=== PATIENT | male | born 1960 | race Caucasian/White ===

== ENCOUNTER 2018-06-03 21:46 | Outpatient (REF) | payer MEDICAID, SELFPAY ==
[2018-06-03 22:42] LABS: Anion Gap 7.6 mmol/L (3-11); BUN 17 mg/dL (7-18); CO2 26.4 mmol/L (21.0-32.0); CREATININE 0.99 mg/dL (0.70-1.30); Calcium 9.3 mg/dL (8.5-10.1); Chloride 100 mmol/L (98-107); Glucose 273 mg/dL (70-100); Potassium 4.7 mmol/L (3.5-5.1); Sodium 134 mmol/L (136-145)
== END 2018-06-03 22:06 ==
LOC: NCHCN 21:46
PROVIDERS: PCP Nurse Practitioner Family; Visit Provider Nurse Practitioner Family
DX: E11.9 Type 2 diabetes mellitus without complications (principal); I10 Essential (primary) hypertension
CPT/HCPCS: 80048

== ENCOUNTER 2019-05-13 11:49 | Outpatient (REF) | payer MEDICAID, SELFPAY ==
[2019-05-13 21:06] LABS: BUN 19 mg/dL (7-18); CREATININE 0.71 mg/dL (0.70-1.30); Calcium 9.2 mg/dL (8.5-10.1); Chloride 101 mmol/L (98-107); Glucose 138 mg/dL (74-106); Potassium 4.7 mmol/L (3.5-5.1); Sodium 136 mmol/L (136-145)
[2019-05-13 21:26] LABS: COMMENT (LAB VIEW ONLY) 44.78 mg/dL; Microalb ug/mg Crea 32.6 ug/mg Cr
== END 2019-05-13 12:09 ==
LOC: NCHCN 11:49
PROVIDERS: PCP Nurse Practitioner Family; Visit Provider Nurse Practitioner Family
DX: E11.9 Type 2 diabetes mellitus without complications (principal); I10 Essential (primary) hypertension; F17.210 Nicotine dependence, cigarettes, uncomplicated; J44.9 Chronic obstructive pulmonary disease, unspecified
CPT/HCPCS: 80048; 82043; 82570

== ENCOUNTER 2020-02-14 23:14 | Outpatient (REF) | payer MEDICAID, SELFPAY ==
[2020-02-14 22:11] LABS: COMMENT (LAB VIEW ONLY) 30.16 mg/dL; Microalb ug/mg Crea 33.8 ug/mg Cr
== END 2020-02-14 23:34 ==
LOC: NCHCN 23:14
PROVIDERS: PCP Nurse Practitioner Family; Visit Provider Nurse Practitioner Family
DX: E11.9 Type 2 diabetes mellitus without complications (principal); I10 Essential (primary) hypertension; F17.210 Nicotine dependence, cigarettes, uncomplicated; F32.9 Major depressive disorder, single episode, unspecified; J44.9 Chronic obstructive pulmonary disease, unspecified
CPT/HCPCS: 82043; 82570

== ENCOUNTER 2021-05-07 14:30 | Outpatient (REF) | payer MEDICAID, SELFPAY ==
[2021-05-07 15:26] LABS: COMMENT (LAB VIEW ONLY) 25.84 mg/dL; Microalb ug/mg Crea 32.9 ug/mg Cr
[2021-05-07 16:08] LABS: ALT 35 U/L (16-63); AST 17 U/L (15-37); Albumin 4.1 g/dL (3.4-5.0); Alkaline Phosphatase 105 U/L (46-116); Anion Gap 12.7 mmol/L (3-11); BUN 19 mg/dL (7-18); Bilirubin, Total 0.3 mg/dL (0.2-1.0); CO2 23.3 mmol/L (21.0-32.0); Calcium 9.6 mg/dL (8.5-10.1); Chloride 99 mmol/L (98-107); Glucose 118 mg/dL (74-106); Magnesium 2.1 mg/dL (1.8-2.4); Potassium 4.6 mmol/L (3.5-5.1); Sodium 135 mmol/L (136-145); Total Protein 7.2 g/dL (6.4-8.2); Vitamin B12 641 pg/mL (193-986)
[2021-05-07 16:10] LABS: Hemoglobin A1C 8.1 % (<5.7)
== END 2021-05-07 14:31 | disposition home or self-care (01) ==
LOC: NCHCN 14:30
PROVIDERS: PCP Nurse Practitioner Family; Visit Provider Nurse Practitioner Family
DX: E11.9 Type 2 diabetes mellitus without complications (principal); I10 Essential (primary) hypertension; E78.5 Hyperlipidemia, unspecified; R80.9 Proteinuria, unspecified; Z51.81 Encounter for therapeutic drug level monitoring
CPT/HCPCS: 80053; 82043; 82570; 82607; 83036; 83735

== ENCOUNTER 2022-05-13 12:59 | Outpatient (REF) | payer MEDICAID, SELFPAY ==
--- OUTSIDE RECORDS SUMMARY | 2022-05-13 13:01 | XMS_ITS | CCD ---
:1960 Author Care Team Providers Name Role Phone EVY CARRASCO Attending Physician Unavailable Vital Signs Unknown or Not Available. Allergies Allergy Code Allergy Type Reaction Status No Known Drug Allergies 0 No known drug allergies Active Procedures Unknown or Not Available. History of Immunizations Unknown or Not Available. Problems Unknown or Not Available. Results Unknown or Not Available. Active Medications Unknown or Not Available. Medications Administered During Visit Unknown or Not Available. Encounters Encounter Diagnosis Diagnosis Code Start Date Encounter for screening for malignant neoplasm of Z122 01/14/2022 respiratory organs Social History Smoking Status Code Start Date End Date Current every day smoker [id number] Patient Decision Aids Unknown or Not Available. Discharge Instructions You were admitted to [facility] on 01/14/2022 14:19 with a principal diagnosis of Encounter for screening for malignant neoplasm of respiratory organs You were discharged from [facility] on 01/14/2022 14:19 Should you have any questions prior to d ischarge, please contact a member of your healthcare team. If you have left the spital and have any questions, please contact your primary care physician. Chief Complaint and Reason For Visit Chief Complaint Date of Onset SMOKER LDCT Function Status Unknown or Not Available. Plan of Care Unknown or Not Available. Referral/Transition of Care Unknown or Not Available.
[2022-05-13 21:41] LABS: Anion Gap 9.8 mmol/L (3-11); BUN 23 mg/dL (7-18); CO2 22.2 mmol/L (21.0-32.0); CREATININE 0.9 mg/dL (0.70-1.30); Calcium 9.3 mg/dL (8.5-10.1); Chloride 102 mmol/L (98-107); Estimated GFR 96.57 (mL/min/1.73m2); Glucose 105 mg/dL (74-106); Potassium 4.3 mmol/L (3.5-5.1); Sodium 134 mmol/L (136-145)
[2022-05-13 21:51] LABS: COMMENT (LAB VIEW ONLY) 33.54 mg/dL; Microalb ug/mg Crea 14.9 ug/mg Cr
[2022-05-15 09:51] LABS: Hepatitis C Ab w Rflx HCV PCR Negative (Negative)
[2022-05-15 10:07] LABS: HIV-1/2 Ag & Ab Screen Negative (Negative)
== END 2022-05-13 13:00 | disposition home or self-care (01) ==
LOC: NCHCN 12:59
PROVIDERS: PCP Nurse Practitioner Family; Visit Provider Nurse Practitioner Family
DX: E11.9 Type 2 diabetes mellitus without complications (principal); I10 Essential (primary) hypertension; J44.9 Chronic obstructive pulmonary disease, unspecified; F17.210 Nicotine dependence, cigarettes, uncomplicated; Z11.4 Encounter for screening for human immunodeficiency virus [HIV]; Z11.59 Encounter for screening for other viral diseases; Z12.11 Encounter for screening for malignant neoplasm of colon
CPT/HCPCS: 80048; 86803; 87389; 82043; 82570

== ENCOUNTER 2023-04-09 20:54 | Outpatient (REF) | payer MEDICAID, SELFPAY ==
[2023-04-09 16:38] LABS: HCT 45.8 % (40.0-50.0); HGB 14.9 g/dL (13.5-17.5); MCH 30.6 pg (27.0-33.0); MCHC 32.5 % (32.0-36.0); MCV 94 fL (80-95); MPV 9.4 fL (8.0-11.0); Platelet Count 292 10^3/uL (130-400); RBC 4.87 10^6/uL (4.36-5.78); RDW 12.1 % (11.8-14.1); RDW-SD 41.9 fL; WBC 6.27 10^3/uL (4.4-10.8)
[2023-04-09 17:07] LABS: Anion Gap 9.3 mmol/L (3-11); BUN 29 mg/dL (7-18); CO2 24.7 mmol/L (21.0-32.0); CREATININE 0.9 mg/dL (0.70-1.30); Calcium 9.3 mg/dL (8.5-10.1); Calculated LDL 67 mg/dL (<100); Chloride 103 mmol/L (98-107); Cholesterol 140 mg/dL (<200); Estimated GFR 95.97 (mL/min/1.73m2); Glucose 136 mg/dL (74-106); HDL Cholesterol 42 mg/dL (40-60); Potassium 4.4 mmol/L (3.5-5.1); Sodium 137 mmol/L (136-145); Triglyceride 157 mg/dL (<150)
[2023-04-09 17:15] LABS: Hemoglobin A1C 8.1 % (<5.7)
--- OUTSIDE RECORDS SUMMARY | 2023-04-09 20:56 | XMS_ITS | CCD ---
Author Name Unknown Address [address] [place] [address] [id number] Organization Unknown Address [address] [place] [address] [phone] Care Team Providers Care Movie Editor Name Role Phone EVY CARRASCO Attending Physician [phone] Vital Signs Unknown or Not Available. Allergies [...] screening for malignant neoplasm of respiratory organs Z122 01/14/2022 Social History Smoking Status Code Start Date End Date Current every day smoker [id number] Patient Decision Aids Unknown or Not Available. Discharge Instructions You were admitted to [facility] on 01/14/2022 14:19 with a principal diagnosis of Encounter for screening for malignant neoplasm of respiratory organs You were discharged from [facility] on 01/14/2022 14:19 Should you have any questions prior to discharge, please contact a member of your healthcare team. If you have left the hospital and have any questions, please contact your primary care physician. Chief Complaint and Reason For Visit Chief Complaint Date of Onset SMOKER LDCT Function Status Unknown or Not Available. Plan of Care Unknown or Not Available. Referral/Transition of Care Unknown or Not Available.
== END 2023-04-09 20:55 | disposition home or self-care (01) ==
LOC: NCHCN 20:54
PROVIDERS: PCP Nurse Practitioner Family; Visit Provider Nurse Practitioner Family
DX: I10 Essential (primary) hypertension (principal); E11.9 Type 2 diabetes mellitus without complications; E78.5 Hyperlipidemia, unspecified
CPT/HCPCS: 80048; 80061; 85027; 83036

== ENCOUNTER 2023-07-16 13:26 | Outpatient (REF) | payer MEDICAID, SELFPAY ==
[2023-07-16 21:22] LABS: HCT 47.8 % (40.0-50.0); HGB 15.8 g/dL (13.5-17.5); MCHC 33.1 % (32.0-36.0); MCV 94 fL (80-95); MPV 9.5 fL (8.0-11.0); Platelet Count 316 10^3/uL (130-400); RBC 5.09 10^6/uL (4.36-5.78); RDW 11.9 % (11.8-14.1); RDW-SD 41.8 fL; WBC 7.27 10^3/uL (4.4-10.8)
[2023-07-16 21:54] LABS: COMMENT (LAB VIEW ONLY) 57.04 mg/dL; Hemoglobin A1C 7.2 % (<5.7); Microalb ug/mg Crea 23.3 ug/mg Cr
[2023-07-16 21:56] LABS: ALT 19 U/L (16-63); AST 16 U/L (15-37); Albumin 3.6 g/dL (3.4-5.0); Alkaline Phosphatase 92 U/L (46-116); Anion Gap 11.5 mmol/L (3-11); BUN 24 mg/dL (7-18); Bilirubin, Total 0.2 mg/dL (0.2-1.0); CO2 21.5 mmol/L (21.0-32.0); CREATININE 0.8 mg/dL (0.70-1.30); Calcium 8.9 mg/dL (8.5-10.1); Chloride 104 mmol/L (98-107); Estimated GFR 99.44 (mL/min/1.73m2); Glucose 94 mg/dL (74-106); Potassium 4.4 mmol/L (3.5-5.1); Sodium 137 mmol/L (136-145); Total Protein 7.3 g/dL (6.4-8.2)
== END 2023-07-16 13:27 | disposition home or self-care (01) ==
LOC: NCHCN 13:26
PROVIDERS: PCP Nurse Practitioner Family; Visit Provider Nurse Practitioner Family
DX: E11.9 Type 2 diabetes mellitus without complications (principal); I10 Essential (primary) hypertension; Z13.0 Encounter for screening for diseases of the blood and blood-forming organs and certain disorders involving the immune mechanism
CPT/HCPCS: 80053; 85027; 82043; 82570; 83036

== ENCOUNTER 2024-08-11 09:56 | Outpatient (REF) | payer MEDICARE, MEDICAID, SELFPAY ==
[2024-08-11 22:01] LABS: COMMENT (LAB VIEW ONLY) 33.13 mg/dL
[2024-08-11 22:11] LABS: Microalb ug/mg Crea 128.9 ug/mg Cr
== END 2024-08-11 09:57 | disposition home or self-care (01) ==
LOC: NCHCN 09:56
PROVIDERS: PCP Nurse Practitioner Family; Visit Provider Nurse Practitioner Family
DX: E11.9 Type 2 diabetes mellitus without complications (principal)
CPT/HCPCS: 82043; 82570

== ENCOUNTER 2024-11-14 14:17 | Outpatient (REF) | payer MEDICARE, MEDICAID, SELFPAY ==
[2024-11-14 15:07] LABS: HGB 17.0 g/dL (13.5-17.5); MCH 30.6 pg (27.0-33.0); MCHC 33.2 % (32.0-36.0); MCV 92 fL (80-95); MPV 9.6 fL (8.0-11.0); Platelet Count 283 10^3/uL (130-400); RBC 5.55 10^6/uL (4.36-5.78); RDW 12.2 % (11.8-14.1); RDW-SD 41.8 fL; WBC 6.96 10^3/uL (4.4-10.8)
[2024-11-14 15:22] LABS: HCT 51.2 % (40.0-50.0)
[2024-11-14 15:31] LABS: ALT 26 U/L (16-63); AST 19 U/L (15-37); Albumin 4.1 g/dL (3.4-5.0); Alkaline Phosphatase 97 U/L (46-116); Anion Gap 7.8 mmol/L (3-11); BUN 21 mg/dL (7-18); Bilirubin, Total 0.2 mg/dL (0.2-1.0); CO2 25.2 mmol/L (21.0-32.0); Calcium 9.4 mg/dL (8.5-10.1); Chloride 103 mmol/L (98-107); Estimated GFR 98.21 (mL/min/1.73m2); Glucose 98 mg/dL (74-106); Potassium 4.7 mmol/L (3.5-5.1); Sodium 136 mmol/L (136-145); Total Protein 7.9 g/dL (6.4-8.2)
[2024-11-14 15:37] LABS: Hemoglobin A1C 8.3 % (<5.7)
== END 2024-11-14 14:18 | disposition home or self-care (01) ==
LOC: NCHCN 14:17
PROVIDERS: PCP Nurse Practitioner Family; Visit Provider Nurse Practitioner Family
DX: E11.9 Type 2 diabetes mellitus without complications (principal); I10 Essential (primary) hypertension; Z13.0 Encounter for screening for diseases of the blood and blood-forming organs and certain disorders involving the immune mechanism
CPT/HCPCS: 80053; 85027; 83036